=== PATIENT | male | born 1985 | race African-American/Black ===

== ENCOUNTER 2018-09-27 21:51 | Emergency (ER) | payer OTHER ==
[~2018-09-27] VITALS: Ht 177.8 cm; Wt 97.5 kg
[2018-09-27 22:13] VITALS: BP 146/100
[2018-09-27] MEDS ORDERED: diphenhydrAMINE HCL 50 MG CAPSULE ONE (22:40)
[2018-09-27] MEDS ORDERED: predniSONE 20 MG TABLET ONE (22:41)
[2018-09-27] MEDS ORDERED: predniSONE 10 MG TABLET PO ONE (23:00)
[2018-09-27] MEDS ORDERED: diphenhydrAMINE HCL 50 MG CAPSULE PO ONE (23:00)
== END 2018-09-27 22:45 | disposition home or self-care (01) ==
LOC: ER 21:53
DX: T78.1XXA Other adverse food reactions, not elsewhere classified, initial encounter (principal); Z98.890 Other specified postprocedural states; X58.XXXA Exposure to other specified factors, initial encounter
CPT/HCPCS: 99283; J7512; Q0163